=== PATIENT | female | born 1995 | race Asian ===

== ENCOUNTER 2022-12-18 12:58 | Day surgery (SDC) | payer OTHER ==
[2022-12-18 13:31] VITALS: BMI 25.9
[2022-12-18] MEDS ORDERED: hydrALAZINE 20 MG/ML VIAL SLOW IVP PRN (15:08)
== END 2022-12-18 15:25 | disposition home or self-care (01) ==
LOC: CSHLD/OP 12:58
PROVIDERS: ATTEND Obstetrics & Gynecology
DX: O36.8390 Maternal care for abnormalities of the fetal heart rate or rhythm, unspecified trimester, not applicable or unspecified (principal); Z79.899 Other long term (current) drug therapy; Z87.59 Personal history of other complications of pregnancy, childbirth and the puerperium; Z3A.39 39 weeks gestation of pregnancy
CPT/HCPCS: 59025; 99282

== ENCOUNTER 2022-12-24 18:00 | Inpatient (IN) | payer OTHER ==
[~2022-12-24 18:00] MED LIST: Bupivacaine 0.25% HCL 30 ML VIAL ONE; ePHEDrine Sulfate 50 MG/10 ML VIAL ONE
[2022-12-24 20:21] VITALS: BMI 26.4
[2022-12-24] MEDS ORDERED: NS w/ Oxytocin 30 units 500 ML IV SCH (21:30)
[2022-12-24] MEDS ORDERED: Lidocaine 1% (PF) 30 ML VIAL SC PRN (21:30)
[2022-12-24] MEDS ORDERED: Methylergonovine 0.2 MG/ML VIAL IM PRN (21:30)
[2022-12-24] MEDS ORDERED: Ondansetron PF 4 MG/2 ML Vial IVP PRN (21:30)
[2022-12-24] MEDS ORDERED: Promethazine HCl 25 MG/ML VIAL IM PRN (21:30)
[2022-12-24] MEDS ORDERED: Docusate 100 MG CAP PO PRN (21:30)
[2022-12-24] MEDS ORDERED: Misoprostol 200 MCG TAB PR PRN (21:30)
[2022-12-24] MEDS ORDERED: Tranexamic Acid 1,000 MG/10 ML VIAL IVP PRN (21:30)
[2022-12-24] MEDS ORDERED: hydrALAZINE 20 MG/ML VIAL SLOW IVP PRN (21:30)
[2022-12-24] MEDS ORDERED: Diphenoxylate HCl/Atropine Tablet PO PRN (21:30)
[2022-12-24] MEDS ORDERED: Carboprost 250 MCG/ML AMP IM PRN (21:30)
[2022-12-24 22:32] LABS: Hemoglobin 11.3 g/dL (12.0-15.5); Mean Corpuscular HGB CONC 31.9 g/dL (32.0-36.0); Mean Corpuscular Hemoglobin 26.3 pg (27.0-33.0); Mean Corpuscular Volume 82.5 fl (81.6-98.3); Mean Platelet Volume 11.9 fl (7.4-10.4); Platelet Count 261 10x3/uL (150-450); RBC Distribution Width 17.6 % (11.5-14.5); Red Blood Cell (RBC) Count 4.29 10x6/uL (3.90-5.03)
[2022-12-24] MEDS ORDERED: Acetaminophen 500 MG TAB PO SCH (22:45)
[2022-12-24] MEDS: Lactated Ringer's 1,000 ML IV SCH (23:00)
[2022-12-25 00:06] LABS: Hep B Surf Ag - L&D Non-Reactive S/CO (NonReactive); Syphilis Antibody Nonreactive (Nonreactive); Syphilis Antibody Index 0.03 S/CO (<1.00 Non-Reactive)
[2022-12-25] MEDS ORDERED: Fentanyl 100 MCG/2 ML VIAL SLOW IVP PRN (01:06)
[2022-12-25] MEDS ORDERED: Fentanyl 100 MCG/2 ML VIAL SLOW IVP SCH (01:30)
[2022-12-25] MEDS: Lactated Ringer's 1,000 ML IV SCH ×2 (07:30→15:13)
[2022-12-25] MEDS ORDERED: Fentanyl 2 mcg/Bup 0.1% Cadd 100 ML ONE ×2 (14:32→23:25)
[2022-12-26] MEDS ORDERED: Fentanyl 2 mcg/Bup 0.1% Cadd 100 ML ONE (07:05)
[2022-12-26] MEDS ORDERED: Moisturizing Cream (Eucerin) 113 GM JAR TOP PRN (07:54)
[2022-12-26] MEDS ORDERED: Promethazine HCl 25 MG/ML VIAL IM PRN (07:54)
[2022-12-26] MEDS ORDERED: Lactated Ringer's 500 ML IV PRN (07:54)
[2022-12-26] MEDS ORDERED: Naloxone HCl 0.4 mg/ml Vial IVP PRN ×2 (07:54)
[2022-12-26] MEDS ORDERED: Ondansetron PF 4 MG/2 ML Vial IVP PRN ×2 (07:54→09:28)
[2022-12-26] MEDS ORDERED: diphenhydrAMINE 50 MG/ML VIAL IVP PRN (07:54)
[2022-12-26] MEDS ORDERED: ePHEDrine Sulfate 50 MG/10 ML VIAL SLOW IVP PRN (07:54)
[2022-12-26] MEDS ORDERED: Communication Order-Pharmacy FS SCH (08:00)
[2022-12-26] MEDS ORDERED: Fentanyl 2 mcg/Bupivacaine 0.1% Cassette 100 ML EPIDURAL SCH (08:00)
[2022-12-26] MEDS ORDERED: Carboprost 250 MCG/ML AMP ONE (08:51)
[2022-12-26] MEDS ORDERED: Methylergonovine 0.2 MG/ML VIAL ONE (08:51)
[2022-12-26] MEDS ORDERED: Tranexamic Acid 1,000 MG/10 ML VIAL ONE (08:52)
[2022-12-26] MEDS ORDERED: Misoprostol 200 MCG TAB ONE (08:52)
[2022-12-26 09:02] LABS: pH (Cord, venous) 7.345 (7.250-7.350)
[2022-12-26] MEDS ORDERED: Preparation H Ointment 28 GM TUBE PR PRN (09:28)
[2022-12-26] MEDS ORDERED: diphenhydrAMINE 25 MG CAP PO PRN (09:28)
[2022-12-26] MEDS ORDERED: Boostrix 0.5 ML (Tdap) VIAL (>/=7 yrs of age) IM ONE (09:28)
[2022-12-26] MEDS ORDERED: Lanolin Ointment 7 GM TUBE TOP PRN (09:28)
[2022-12-26] MEDS ORDERED: hydrALAZINE 20 MG/ML VIAL SLOW IVP PRN (09:28)
[2022-12-26] MEDS ORDERED: Milk Of Magnesia 30 ML UDCUP PO PRN (09:28)
[2022-12-26] MEDS ORDERED: Methylergonovine 0.2 MG/ML VIAL IM PRN (09:28)
[2022-12-26] MEDS ORDERED: Misoprostol 200 MCG TAB VAG PRN (09:28)
[2022-12-26] MEDS ORDERED: Bisacodyl 10 MG SUPP PR PRN (09:28)
[2022-12-26] MEDS ORDERED: NS w/ Oxytocin 30 units 500 ML IV SCH (09:30)
[2022-12-26] MEDS ORDERED: Ibuprofen 800 MG TAB PO SCH (09:30)
[2022-12-26] MEDS: Acetaminophen 325 MG TAB PO PRN ×2 (09:45→17:09)
[2022-12-26] MEDS ORDERED: Gentamicin 270 MG in Sodium Chloride 0.9% 100 ML IVPB SCH (10:15)
[2022-12-26] MEDS ORDERED: Ampicillin 2 GM VIAL ONE (10:22)
[2022-12-26] MEDS ORDERED: Ampicillin 2 GM in Sodium Chloride 0.9% 100 ML IVPB SCH (10:30)
[2022-12-26] MEDS ORDERED: AMPicillin 2 GM in Sodium Chloride 0.9% 100 ML IVPB SCH (12:00)
[2022-12-26] MEDS: Ibuprofen 800 MG TAB PO SCH ×2 (14:42→21:45)
[2022-12-26] MEDS: Ampicillin 2 GM in Sodium Chloride 0.9% 100 ML IVPB SCH ×2 (17:03→21:44)
[2022-12-26] MEDS: Ferrous Sulfate 325 MG TAB PO SCH (17:09)
[2022-12-26] MEDS: Lactated Ringer's 1,000 ML IV SCH (19:08)
[2022-12-26] MEDS: Docusate 100 MG CAP PO SCH (21:45)
[2022-12-27] MEDS: Ampicillin 2 GM in Sodium Chloride 0.9% 100 ML IVPB SCH (05:30)
[2022-12-27] MEDS: Ibuprofen 800 MG TAB PO SCH ×3 (05:31→22:07)
[2022-12-27 06:35] LABS: ALT (SGPT) 17 U/L (8-55); AST (SGOT) 21 U/L (5-34); Albumin 2.5 g/dL (3.5-5.0); Alkaline Phosphatase 147 U/L (40-110); Anion Gap 13 mmol/L (10-20); BUN (Urea Nitrogen) 8 mg/dL (7.0-18.7); Bilirubin, Total 0.2 mg/dL (0.2-1.2); Calc. Creatinine Clearance 142 mL/min (70-130); Calcium 8.5 mg/dL (7.8-10.44); Carbon Dioxide 22 mmol/L (22-29); Chloride 105 mmol/L (98-107); Estimated GFR 127; Globulin 3.2 g/dL (2.4-3.5); Glucose 74 mg/dL (70-105); Potassium 3.9 mmol/L (3.5-5.1); Protein, Total 5.7 g/dL (6.0-8.3); Sodium 136 mmol/L (136-145)
[2022-12-27 06:47] LABS: #Basophils 0.1 10x3/uL (0.0-0.2); #Eosinphils 0.2 10x3/uL (0.0-0.5); #Monocytes 0.8 10x3/uL (0.0-1.1); #Neutrophils 7.2 10x3/uL (1.5-8.4); %Basophils 0.5 % (0.0-2.0); %Eosinophils 1.7 % (0.0-6.0); %Monocytes 7.6 % (0.0-10.0); %Neutrophils 68.9 % (40.0-75.0); Hemoglobin 10.4 g/dL (12.0-15.5); Mean Corpuscular Hemoglobin 26.6 pg (27.0-33.0); Mean Corpuscular Volume 83.1 fl (81.6-98.3); Mean Platelet Volume 12.4 fl (7.4-10.4); Platelet Count 208 10x3/uL (150-450); RBC Distribution Width 17.7 % (11.5-14.5); Red Blood Cell (RBC) Count 3.91 10x6/uL (3.90-5.03); White Blood Cell (WBC) Count 10.5 10x3/uL (3.5-10.5)
[2022-12-27] MEDS: Ferrous Sulfate 325 MG TAB PO SCH ×2 (07:09→14:54)
[2022-12-27] MEDS: Prenatal Vitamin 1 TAB PO SCH (08:54)
[2022-12-27] MEDS: Docusate 100 MG CAP PO SCH ×2 (08:54→20:52)
[2022-12-27] MEDS ORDERED: Ampicillin 2 GM in Sodium Chloride 0.9% 100 ML IVPB SCH (12:00)
[2022-12-27] MEDS: Lactated Ringer's 1,000 ML IV SCH (14:52)
[2022-12-28] MEDS: Ibuprofen 800 MG TAB PO SCH (07:51)
[2022-12-28] MEDS: Docusate 100 MG CAP PO SCH (07:52)
[2022-12-28] MEDS: Prenatal Vitamin 1 TAB PO SCH (07:52)
[2022-12-28] MEDS: Ferrous Sulfate 325 MG TAB PO SCH (07:54)
[2022-12-28 09:33] VITALS: BP 110/68; TEMP 97.7
== END 2022-12-28 12:55 | disposition home or self-care (01) | DRG 805 ==
LOC: CSHLD 18:58 → CSHPP 12-26 10:56
PROVIDERS: ADMIT Student in an Organized Health Care Education/Training Program; ATTEND Student in an Organized Health Care Education/Training Program
PROC: 0U7C7ZZ Dilation of Cervix, Via Natural or Artificial Opening (ICD-10-PCS; 2022-12-25)
PROC: 3E033VJ Introduction of Other Hormone into Peripheral Vein, Percutaneous Approach (ICD-10-PCS; 2022-12-25)
PROC: 10D07Z6 Extraction of Products of Conception, Vacuum, Via Natural or Artificial Opening (ICD-10-PCS; principal; 2022-12-26)
PROC: 0KQM0ZZ Repair Perineum Muscle, Open Approach (ICD-10-PCS; 2022-12-26)
PROC: 10907ZC Drainage of Amniotic Fluid, Therapeutic from Products of Conception, Via Natural or Artificial Opening (ICD-10-PCS; 2022-12-26)
PROC: 0W8NXZZ Division of Female Perineum, External Approach (ICD-10-PCS; 2022-12-26)
DX: O34.211 Maternal care for low transverse scar from previous cesarean delivery (principal); O41.1230 Chorioamnionitis, third trimester, not applicable or unspecified; Z37.0 Single live birth; O86.4 Pyrexia of unknown origin following delivery; O48.0 Post-term pregnancy; Z3A.40 40 weeks gestation of pregnancy; O76 Abnormality in fetal heart rate and rhythm complicating labor and delivery; O70.1 Second degree perineal laceration during delivery; O99.02 Anemia complicating childbirth; D64.9 Anemia, unspecified; Z79.899 Other long term (current) drug therapy
CPT/HCPCS: 36415; 51702; 80053; 82805; 85025; 85027; 86780; 86850; 86900; 86901; 87340; 88307; J0290; J1580; J2210; J2405; J2590; J3010; J3490; J7120; S0020

== ENCOUNTER 2025-04-14 03:37 | Inpatient (IN) | payer BC ==
[2025-04-14 03:58] VITALS: BMI 24.7
[2025-04-14] MEDS ORDERED: Ibuprofen 800 MG TAB PO PRN (04:40)
[2025-04-14] MEDS ORDERED: Carboprost 250 MCG/ML AMP IM PRN (04:40)
[2025-04-14] MEDS ORDERED: Methylergonovine 0.2 MG/ML VIAL IM PRN ×2 (04:40→10:42)
[2025-04-14] MEDS ORDERED: Acetaminophen 500 MG TAB PO PRN (04:40)
[2025-04-14] MEDS ORDERED: Ondansetron PF 4 MG/2 ML Vial IVP PRN ×2 (04:40→05:44)
[2025-04-14] MEDS ORDERED: Diphenoxylate HCl/Atropine Tablet PO PRN (04:40)
[2025-04-14] MEDS ORDERED: hydrALAZINE 20 MG/ML VIAL SLOW IVP PRN ×2 (04:40→10:42)
[2025-04-14] MEDS ORDERED: Lidocaine 1% (PF) 30 ML VIAL SC PRN (04:40)
[2025-04-14] MEDS ORDERED: Oxytocin 30 units/NS 500 ML 500 ML IV SCH ×3 (04:45→10:45)
[2025-04-14 04:48] LABS: Hematocrit 36.7 % (34.9-44.5); Hemoglobin 12.0 g/dL (12.0-15.5); Mean Corpuscular Hemoglobin 27.9 pg (27.0-33.0); Mean Corpuscular Volume 85.3 fL (81.6-98.3); Platelet Count 217 10x3/uL (150-450); Red Blood Cell (RBC) Count 4.30 10x6/uL (3.90-5.03); White Blood Cell (WBC) Count 7.30 10x3/uL (3.5-10.5)
[2025-04-14 05:17] LABS: Hep B Surf Ag - L&D Non-Reactive S/CO (NonReactive)
[2025-04-14 05:18] LABS: Syphilis Antibody Index 0.05 S/CO (<1.00 Non-Reactive)
[2025-04-14] MEDS: fentaNYL/Ropivacaine Epidural 100 ML ONE (05:30)
[2025-04-14] MEDS ORDERED: diphenhydrAMINE 50 MG/ML VIAL IVP PRN (05:44)
[2025-04-14] MEDS ORDERED: Acetaminophen 325 MG TAB PO PRN (05:44)
[2025-04-14] MEDS ORDERED: fentaNYL 2 mcg/Ropivacaine 0.2% Epidural 100 ML CADD EPIDURAL SCH (05:45)
[2025-04-14] MEDS ORDERED: Communication Order-Pharmacy FS SCH (05:45)
[2025-04-14] MEDS: Tranexamic Acid 1,000 MG/10 ML VIAL IVP PRN (10:37)
[2025-04-14] MEDS ORDERED: Milk Of Magnesia 30 ML UDCUP PO PRN (10:42)
[2025-04-14] MEDS ORDERED: diphenhydrAMINE 25 MG CAP PO PRN (10:42)
[2025-04-14] MEDS ORDERED: Lanolin Ointment 7 GM TUBE TOP PRN (10:42)
[2025-04-14] MEDS ORDERED: Preparation H Ointment 28 GM TUBE PR PRN (10:42)
[2025-04-14] MEDS ORDERED: Benzocaine-Menthol 82.5 ML CAN TOP PRN (10:42)
[2025-04-14] MEDS ORDERED: Bisacodyl 10 MG SUPP PR PRN (10:42)
[2025-04-14] MEDS: Ferrous Sulfate 325 MG TAB PO SCH (16:43)
[2025-04-14] MEDS: Ibuprofen 800 MG TAB PO SCH (16:48)
[2025-04-14] MEDS: Erythromycin Base 0.5% Oint 1 GM TUBE ONE (19:22)
[2025-04-15] MEDS: HYDROcodone/Acetaminophen 5/325 mg Tablet PO SCH (00:56)
[2025-04-15] MEDS: Ibuprofen 800 MG TAB PO SCH (00:57)
[2025-04-16 07:19] LABS: Hematocrit 36.2 % (34.9-44.5); Hemoglobin 11.6 g/dL (12.0-15.5)
[2025-04-16] MEDS: Boostrix 0.5 ML (Tdap) VIAL (>/=7 yrs of age) IM ONE (07:23)
[2025-04-16 08:21] VITALS: BP 90/53; TEMP 97.7
[2025-04-16] MEDS: Ondansetron PF 4 MG/2 ML Vial IVP PRN (10:04)
== END 2025-04-16 14:15 | disposition home or self-care (01) | DRG 807 ==
LOC: CSHLD/OP 03:37 → CSHLD 04:10 → CSHPED 14:00
PROVIDERS: ADMIT Obstetrics & Gynecology; ATTEND Obstetrics & Gynecology
PROC: 10E0XZZ Delivery of Products of Conception, External Approach (ICD-10-PCS; principal; 2025-04-14)
PROC: 10907ZC Drainage of Amniotic Fluid, Therapeutic from Products of Conception, Via Natural or Artificial Opening (ICD-10-PCS; 2025-04-14)
DX: O80 Encounter for full-term uncomplicated delivery (principal); Z37.0 Single live birth; Z3A.37 37 weeks gestation of pregnancy
CPT/HCPCS: 36415; 51702; 85014; 85018; 85027; 86780; 86850; 86900; 86901; 87340; 99285; J2405; J7120

== ENCOUNTER 2025-08-24 00:47 | Emergency (ER) | payer BC, MEDICAID ==
[2025-08-24 04:05] LABS: BHCG - Serum Negative (NEGATIVE); Pregs Control Background? CLEAR/WHITE (CLR/WHITE); Pregs Control Bar Appear? YES (CONTROL BAR)
[2025-08-24 04:12] LABS: #Basophils 0.06 10x3/uL (0.0-0.2); #Eosinophils 0.18 10x3/uL (0.0-0.5); #Monocytes 0.57 10x3/uL (0.0-1.1); #Neutrophils 2.60 10x3/uL (1.5-8.4); %Basophils 1.0 % (0.0-2.0); %Eosinophils 2.9 % (0.0-6.0); %Lymphocytes 45.5 % (18.0-47.0); %Monocytes 9.1 % (0.0-10.0); %Neutrophils 41.3 % (40.0-75.0); Anion Gap 12 mmol/L (10-20); BUN (Urea Nitrogen) 17 mg/dL (7.0-18.7); Calc. Creatinine Clearance 0 mL/min (70-130); Carbon Dioxide 25 mmol/L (22-29); Chloride 104 mmol/L (98-107); Hematocrit 30.1 % (34.9-44.5); Hemoglobin 9.7 g/dL (12.0-15.5); Mean Corpuscular Hemoglobin 27.9 pg (27.0-33.0); Mean Corpuscular Volume 86.5 fL (81.6-98.3); Platelet Count 373 10x3/uL (150-450); Potassium 3.9 mmol/L (3.5-5.1); Red Blood Cell (RBC) Count 3.48 10x6/uL (3.90-5.03); Sodium 137 mmol/L (136-145); White Blood Cell (WBC) Count 6.27 10x3/uL (3.5-10.5)
[2025-08-24 04:13] LABS: ALT (SGPT) 8 U/L (Less than 34); AST (SGOT) 15 U/L (11-34); Albumin 4.0 g/dL (3.1-4.5); Alkaline Phosphatase 68 U/L (40-110); Bilirubin, Total 0.1 mg/dL (0.3-1.2); Calcium 9.4 mg/dL (7.8-10.44); Globulin 3.5 g/dL (2.4-3.5); Glucose 100 mg/dL (70-105)
== END 2025-08-24 03:55 | disposition home or self-care (01) ==
LOC: CSHERS 00:47
DX: N93.9 Abnormal uterine and vaginal bleeding, unspecified (principal); D64.9 Anemia, unspecified; N83.201 Unspecified ovarian cyst, right side; R93.89 Abnormal findings on diagnostic imaging of other specified body structures
CPT/HCPCS: 76856; 80053; 84703; 85025